=== PATIENT | female | born 2000 | race Native Hawaiian/Other Pacific Islander ===

== ENCOUNTER 2022-09-19 18:02 | Inpatient (IN) ==
[2022-09-19 20:48] LABS: Basophils # (auto) 0.03 K/uL (0-0.2); Basophils % (auto) 0.3 %; Eosinophils # (auto) 0.04 K/uL (0-0.50); Eosinophils % (auto) 0.4 %; Hematocrit (blood only) 37.8 % (37.0-47.0); Hemoglobin 12.7 g/dl (12.0-16.0); Lymphocytes # (auto) 2.14 K/uL (1.2-3.4); Lymphocytes % (auto) 20.8 %; Mean Corpuscular Hgb Conc 33.6 g/dL (32.0-36.0); Mean Corpuscular Volume 92.2 fL (80.0-100.0); Mean Platelet Volume 10.4 fL (9.4-12.4); Monocytes # (auto) 0.61 K/uL (0.11-0.59); Monocytes % (auto) 5.9 %; Neutrophils # (auto) 7.38 K/uL (1.40-6.50); Neutrophils % (auto) 71.6 %; Nucleated RBC # (auto) 0.04 K/uL (0-0.12); Nucleated RBC % (auto) 0.4 %; Platelet Count 117 K/uL (130-400); RDW Coefficient of Variation 15.4 % (11.5-14.5)
[2022-09-19 20:54] LABS: Creatinine Urine Random 37.7 mg/dl; Protein Creatinine Ratio Urine 0.3 (0-0.2); Total Protein Urine Random 10.7 mg/dl (0-11.9)
[2022-09-19 21:14] LABS: Alanine Aminotransferase 14 U/L (7-52); Albumin Globulin Ratio 1.4 (0.9-2); Albumin Level 3.7 gm/dl (3.4-5.0); Alkaline Phosphatase 108 U/L (34-104); BUN Creatinine Ratio 13.3 (10-20); Bilirubin,Total 0.5 mg/dl (0.2-1.0); Blood Urea Nitrogen 6 mg/dl (6-23); Calcium 8.9 mg/dl (8.6-10.3); Carbon Dioxide 19 mmol/L (21-32); Chloride 108 mmol/L (98-107); Est GFR (African American) > 150.0 ml/min; Est GFR (Non-African American) 141.2 ml/min; Globulin 2.6 gm/dl (2.5-4.0); Glucose 100 mg/dl (70-99(Fasting)); Total Protein 6.3 gm/dl (6.0-8.3)
[2022-09-19 22:08] LABS: Potassium 3.8 mmol/L (3.5-5.1)
[2022-09-19] MEDS ORDERED: LIDOCAINE 1% LOCAL 20 ML VIAL INFIL PRN (22:46)
[2022-09-19] MEDS ORDERED: OXYTOCIN 30 UNITS/500 ML BAG IV PRN ×2 (22:46)
[2022-09-19] MEDS ORDERED: PENICILLIN G POTASSIUM 6 MU in DEXTROSE 5% 250 ML IV STA (22:54)
--- NOTE | 2022-09-19 22:57 | History & Physical Report ---
Date of Service September 19, 2022 Assessment & Plan (1) Gestational diabetes: (2) GBS carrier: Plan 21 yo at 39 4/7 wga presents w/ decreased fm, no dx w/ PET w/o SF Mild range BPs Fetus cat 1 Labor - will check, was ft yesterday so likely pit/masters. Vertex by bsus PET w/o SF - will monitor bps GBS+, pcn ordered epidural prn History of Present Illness Chief Complaint: decreased fm Primary Care Provider: NO PCP 21 yo at 39 4/7 wga presented earlier this evening w/ c/o decreased FM. NST was reactive and she began feeling good FM however BPs were elevated. They were monitored and continued to remain normotensive to mild range with a severe range noted that was ?around the time of when lab was coming and was immediately repeated without much time in b/w however did not persist. Labs were obtained and wnl except uP:C 0.3. BPs did remain mild range 4hrs apart so met criteria for pre-eclampsia w/o SF. 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 cyclesdenies hx stis Allergies Allergy/AdvReac Type Severity Reaction Status Date / Time No Known Allergies Allergy Verified 09/18/22 10:20 Home Medications Medication Instructions Recorded Confirmed Type prenat.vits,zoltan,[id number]-[id number] 1 tab PO DAILY 02/05/22 09/18/22 History acetone (urine) test (Ketone Urine #50 ea 08/07/22 09/18/22 Rx Test strips) blood sugar diagnostic (OneTouch #150 ea 08/07/22 09/18/22 Rx Verio test strips) blood-glucose meter (OneTouch #1 ea 08/07/22 09/18/22 Rx Verio Reflect Meter) lancets 33 gauge (OneTouch Delica #150 ea 08/07/22 09/18/22 Rx Lancets) flash glucose sensor (FreeStyle #2 ea 08/08/22 09/18/22 Rx Cristobal 2 Sensor kit) Patient History Surgical History S/P wisdom tooth extraction Surgery, elective surgical 2018 Family History (Updated 02/05/22 @ 07:45 by Chica Magaña) Other Diabetes Dyslipidemia Endometriosis Heart disease Hypertension Thyroid disease Social History (Updated 02/05/22 @ 07:46 by Chica Magaña) Smoking Status: Never smoker Do You Dip or Chew Tobacco: No; Hx Alcohol Use: No Hx Substance Use: No Preferred Language: Mongolian Communication Ability: Effective Director Of Field Sales Required: No Beliefs That Will Affect Care: None marital status: marital status details: Jaycob [phone] Current Living Situation: Spouse Current Living Situation Comment: lives with spouse, no pets current occupational status: employed current occupation: Teacher. Other Information That Helps Us Care for You: No Feels Safe at Home: Yes Safety Concerns: Feels Safe At This Time Assistive Devices: None Physical Exam Genitourinary: OB Exam Abdomen: + vertex (confirmed by bsus) OB Exam Monitor Tracing: + external FHT monitor used, + external uterine monitor used and + category I Results & Data Vital Signs (Past 12 Hours) Vital Signs Pulse BP 09/19/22 22:19 103 H 09/19/22 22:19 145/68 H 09/19/22 22:09 100 H 09/19/22 22:09 134/63 09/19/22 22:00 96 H 09/19/22 22:00 155/90 H 09/19/22 21:49 101 H 09/19/22 21:49 134/107 H 09/19/22 21:40 108 H 09/19/22 21:40 144/96 H 09/19/22 21:36 102 H 09/19/22 21:36 144/91 H 09/19/22 20:59 97 H 126/84 09/19/22 20:12 110 H 143/97 H 09/19/22 19:49 113 H 178/97 H 09/19/22 19:34 112 H 175/84 H 09/19/22 19:33 123 H 160/79 H 09/19/22 19:18 113 H 154/84 H 09/19/22 19:04 108 H 149/81 H 09/19/22 18:48 113 H 140/90 09/19/22 18:33 100 H 148/85 H 09/19/22 18:17 104 H 142/95 H Laboratory Results OB Labs: Blood Type A Positive 02/13/22 Antibody Screen NEGATIVE 02/13/22 Hemoglobin 11.2 g/dl (12.0-16.0) L 07/19/22 Hematocrit 32.6 % (37.0-47.0) L 07/19/22 Mean Corpuscular Volume 86.8 fL (80.0-100.0) 02/13/22 Platelet Count 235 K/uL (130-400) 02/13/22 Rubella IgG Antibody Immune (Immune) 02/13/22 Rapid Plasma Reagin Nonreactive (Nonreactive) 02/13/22 Hepatitis B Surface Antigen. NON-REACTIVE (NON-REACTIVE) 02/13/22 Hepatitis C Antibody (EIA) NON-REACTIVE (NON-REACTIVE) 02/13/22 HIV (1&2) Ag and Ab Confirmation NON-REACTIVE (NON-REACTIVE) 02/13/22 Glucose 1 Hour 50 gm Load 133 mg/dl (70-130) H 04/09/22 OB Optional Labs: Chlamydia trachomatis RNA Not Detected (NotDetected) 02/13/22 Neisseria gonorrhoeae RNA Not Detected (NotDetected) 02/13/22 Labs Reviewed: Declines cf/sma/cfdna--mln declines quad/afp GBS+ Diagnostic Findings 08/22 EFW 48%, ant plac Coding Level of Care Code None Diagnoses Gestational diabetes O24.419 GBS carrier Z22.330
[2022-09-19] MEDS: LACTATED RINGER'S 1,000 ML IV PRN (23:54)
[2022-09-20] MEDS ORDERED: diphenhydrAMINE 50 MG/ML VIAL PO STA (01:37)
[2022-09-20] MEDS ORDERED: diphenhydrAMINE Capsule 25 MG CAP PO STA (01:57)
[2022-09-20] MEDS: PENICILLIN G POTASSIUM 3 MU in DEXTROSE 5% 100 ML IV PRN ×5 (03:35→21:01)
[2022-09-20] MEDS: LACTATED RINGER'S 1,000 ML IV PRN ×4 (03:35→16:34)
--- NOTE | 2022-09-20 10:37 | Labor Progress Brief Note ---
Date of Service September 20, 2022 Subjective Delayed entry. Care of patient assumed at 0830. 21yo at 39w5d admitted for IOL with mild preeclampsia, GDM diet controlled, GBS+, and class 3 obesity. On pitocin but neither ruptured nor had received epidural at the time I assumed care. Assessment & Plan (1) Gestational diabetes: Plan: continue curr mgmt. Admission and Anticipated Discharge Date Admission Date: September 19, 2022 Physical Exam Genitourinary: /-2 150 mod marlena +acc -dec Agreeable to AROM: light mec noted. Does not desire epidural yet. Results & Data Vital Signs (Past 12 Hours) Vital Signs Temp Pulse Resp BP 09/20/22 09:58 103 H 141/99 H 09/20/22 08:52 101 H 136/78 09/20/22 06:56 87 130/61 09/20/22 05:13 97 H 135/64 09/20/22 03:25 86 131/60 09/20/22 02:18 96 H 125/71 09/20/22 00:42 94 H 110/55 L 09/19/22 23:37 95 H 09/19/22 23:37 135/84 09/19/22 23:35 18 09/19/22 23:35 99.3 F 18 Coding Level of Care Code None Diagnoses Gestational diabetes O24.419
[2022-09-20] MEDS ORDERED: BUPIVACAINE 0.25% PF 30 ML VIAL ONE (12:02)
[2022-09-20] MEDS ORDERED: LIDOCAINE 2%/EPINEPHRINE 1:200,000 20 ML PF ONE (12:02)
[2022-09-20] MEDS ORDERED: fentaNYL citrate PF 100 MCG/2 ML VIAL ONE (12:02)
[2022-09-20] MEDS ORDERED: SODIUM CHLORIDE 0.9% PF INJ 10 ML VIAL ONE (12:02)
[2022-09-20] MEDS ORDERED: ePHEDrine sulfate 50 MG/ML AMP ONE (12:02)
[2022-09-20] MEDS ORDERED: fentaNYL 2MCG/ML ROPIVACAINE 1.25MG/ML 100 ML BAG EPI ONE (12:03)
--- NOTE | 2022-09-20 12:17 | Anesthesiology Consultation ---
Date of Service September 20, 2022 Assessment & Plan Chart Review Chart Review: Acceptable Risk for Surgery and Patient NOT seen in Pre Admission Testing Consults Requested none ASA ASA3 Proposed Anesthesia Anesthesia Type: Labor Epidural and CSE History Height/Weight Height: 5 ft Weight: 119.295 kg Allergies Allergy/AdvReac Type Severity Reaction Status Date / Time No Known Allergies Allergy Verified 09/18/22 10:20 Medications Home Medications Medication Instructions Recorded Confirmed Last Taken prenat.vits,zoltan,thf-wizw-fclan 1 tab PO DAILY 02/05/22 09/18/22 Unknown acetone (urine) test (Ketone Urine #50 ea 08/07/22 09/18/22 Unknown Test strips) blood sugar diagnostic (OneTouch #150 ea 08/07/22 09/18/22 Unknown Verio test strips) blood-glucose meter (OneTouch #1 ea 08/07/22 09/18/22 Unknown Verio Reflect Meter) lancets 33 gauge (OneTouch Delica #150 ea 08/07/22 09/18/22 Unknown Lancets) flash glucose sensor (FreeStyle #2 ea 08/08/22 09/18/22 Unknown Cristobal 2 Sensor kit) Active Medications Generic Name Dose Route Start Last Admin Trade Name Freq PRN Reason Stop Dose Admin Oxytocin 30 units in 500 mls @ 12 mls/hr 09/19/22 22:46 09/20/22 11:11 Pitocin IV 09/21/22 22:45 0.72 units/hr .Q24H PRN 12 mls/hr Labor Induction/Augmentation Titration Protocol 0.72 UNITS/HR Lactated Ringer's 1,000 mls @ 125 mls/hr 09/19/22 22:46 09/20/22 08:55 Lr IV 09/21/22 22:45 125 mls/hr .Q8H PRN Administration L&D Protocol Protocol Penicillin G Potassium 3 mu/ 106 mls @ 100 mls/hr 09/20/22 01:46 09/20/22 10:31 Dextrose IV 09/30/22 01:45 Infused Q4H PRN Infusion GBS(+) Until Delivery Past Medical History morbid obesity Exercise / Class Metabolic Activity II 4-5 Yardwork/Stairs/Walk up hill Past Family History Family History Other Diabetes Dyslipidemia Endometriosis Heart disease Hypertension Thyroid disease Past Surgical History Surgical History S/P wisdom tooth extraction Surgery, elective surgical 2018 Past Anesthesia History No Hx of Anesthesia Complications and No Family Hx of Anesthesia Complications History of PONV No Hx of PONV and No Hx of Motion Sickness Social History Smoking Status: Never smoker Do You Dip or Chew Tobacco: No Hx Alcohol Use: No Hx Substance Use: No Physical Exam Vital Signs Last Vital Signs Temp 37.0 C 09/20/22 11:13 Pulse 95 H 09/20/22 12:13 Resp 20 09/20/22 11:13 BP 155/89 H 09/20/22 11:13 Pulse Ox 96 09/20/22 12:13 Testing Laboratory Results 09/19/22 19:57 09/19/22 21:23 Blood Type A Positive 09/19/22 22:59 Antibody Screen NEGATIVE 09/19/22 22:59 09/20/22 09/20/22 09/20/22 10:51 06:53 02:16 POC Glucose 84 90 92
[2022-09-20] MEDS ORDERED: PROMETHAZINE HCL 25 MG in SODIUM CHLORIDE 0.9% 50 ML IV PRN (13:06)
[2022-09-20] MEDS ORDERED: fentaNYL citrate PF 100 MCG/2 ML VIAL EPI STA (13:06)
[2022-09-20] MEDS ORDERED: NALBUPHINE HCL INJ 10 MG/ML AMP IV PRN (13:06)
[2022-09-20] MEDS ORDERED: SODIUM CHLORIDE 0.9% PF INJ 10 ML VIAL EPI PRN (13:06)
[2022-09-20] MEDS ORDERED: diphenhydrAMINE 50 MG/ML VIAL IV PRN (13:06)
[2022-09-20] MEDS ORDERED: ONDANSETRON INJ 2 MG/ML 2 ML VIAL IV PRN (13:06)
[2022-09-20] MEDS ORDERED: LIDOCAINE 2% MPF LOCAL 5 ML VIAL EPI PRN (13:06)
[2022-09-20] MEDS ORDERED: NALOXONE HCL 1 MG in SODIUM CHLORIDE 0.9% 1000ML 1,000 ML IV PRN (13:06)
[2022-09-20] MEDS ORDERED: BUPIVACAINE 0.25% PF 30 ML VIAL EPI STA (13:06)
[2022-09-20] MEDS ORDERED: NALOXONE HCL 0.4 MG/1 ML VIAL/CARP IV PRN (13:06)
[2022-09-20] MEDS ORDERED: BUPIVACAINE 0.25% PF 30 ML VIAL EPI PRN (13:06)
[2022-09-20] MEDS ORDERED: SODIUM CHLORIDE 0.9% PF INJ 10 ML VIAL EPI STA (13:06)
[2022-09-20] MEDS ORDERED: fentaNYL citrate PF 100 MCG/2 ML VIAL EPI PRN (13:06)
[2022-09-20] MEDS ORDERED: ePHEDrine sulfate 50 MG/ML AMP IV PRN (13:06)
[2022-09-20] MEDS ORDERED: ROPIVACAINE 0.5% PF 5 MG/ML 20 ML VIAL EPI PRN (13:06)
[2022-09-20] MEDS ORDERED: LIDOCAINE 2%/EPINEPHRINE 1:200,000 20 ML PF EPI STA (13:06)
[2022-09-20] MEDS: fentaNYL 2MCG/ML ROPIVACAINE 1.25MG/ML 100 ML BAG EPI PRN ×2 (19:27→23:49)
[2022-09-20] MEDS ORDERED: NURSING L&D Epidural Breakthrough Pain Update ONE (19:59)
--- NOTE | 2022-09-20 20:58 | Anesthesia Procedure Note ---
Date of Service September 20, 2022 Anesthesia Epidural Re-Dose Vital Signs Temp Pulse Resp BP Pulse Ox 99.0 F 111 H 20 139/67 97 09/20/22 19:15 09/20/22 20:53 09/20/22 20:30 09/20/22 20:45 09/20/22 20:53 Notes Pain Intensity: 3 Dilatation (cm): 6.0 Effacement (%): 100 Called by nursing to evaluate epidural as the patient is having increased pain. The epidural was re-dosed with the following medications (all medications via epidural route) after negative aspiration of the epidural catheter for CSF/HEME. 0.125% Bupivacaine (8ml) After Epidural Re-Dose Mental Status: alert / awake / arousable Pain: improving with treatment Airway Patency, RR, SpO2: stable & adequate BP & HR: stable & adequate
[2022-09-20] MEDS ORDERED: ACETAMINOPHEN 325 MG TAB PO PRN (21:54)
[2022-09-20] MEDS ORDERED: ACETAMINOPHEN 325 MG TAB ONE (22:10)
[2022-09-20] MEDS ORDERED: AMPICILLIN/SULBACTAM SOD 3,000 MG in 0.9 % SODIUM CHLORIDE 100 ML IV STA (23:29)
--- NOTE | 2022-09-20 23:36 | Labor Progress Brief Note ---
Date of Service September 20, 2022 Subjective Patient feeling fatigued, hot / flushed, hoping to be delivered soon. Note I was called by the nurse an hour or so ago to request tylenol for headache, which was given. Assessment & Plan (1) Gestational diabetes: Plan: Fever noted, 100.8F now even in the setting of prior tylenol, and baseline at upper limit of normal to mildly tachycardic at times. Likely early endo myometritis, will begin Unasyn. Fortunately also completely dilated and will begin 2nd stage of labor. Admission and Anticipated Discharge Date Admission Date: September 19, 2022 Physical Exam Physical Exam: sitting upright, cool washcloth on forehead and ice pack pad on chest Genitourinary: 10/+1 with notable molding. 160 mod marlena +acc -dec [place] Q2-5 moderate meconium fluid in the IU[facility] and on chux Results & Data Vital Signs (Past 12 Hours) Vital Signs Temp Pulse Resp BP Pulse Ox O2 Del Method 09/20/22 19:10 Room Air 09/20/22 23:28 135 H 100 09/20/22 23:23 126 H 100 09/20/22 23:21 116 H 139/79 09/20/22 23:18 140 H 97 09/20/22 23:13 115 H 97 09/20/22 23:08 114 H 98 09/20/22 23:06 116 H 131/61 09/20/22 23:00 18 09/20/22 23:00 18 09/20/22 23:03 114 H 100 09/20/22 22:54 100.8 F H 09/20/22 22:58 114 H 98 09/20/22 22:53 117 H 98 09/20/22 22:51 118 H 131/56 L 09/20/22 22:48 123 H 99 09/20/22 22:43 127 H 97 09/20/22 22:30 20 09/20/22 22:30 20 09/20/22 22:38 112 H 97 09/20/22 22:35 117 H 134/62 09/20/22 22:33 121 H 98 09/20/22 22:28 136 H 96 09/20/22 22:00 18 09/20/22 22:00 18 09/20/22 22:23 117 H 98 09/20/22 22:22 120 H 152/69 H 09/20/22 22:18 116 H 99 09/20/22 22:13 114 H 99 09/20/22 22:08 106 H 96 09/20/22 22:06 110 H 132/61 09/20/22 22:03 104 H 97 09/20/22 21:58 116 H 97 09/20/22 21:53 116 H 97 09/20/22 21:50 114 H 135/62 09/20/22 21:48 111 H 96 09/20/22 21:43 110 H 95 09/20/22 21:30 16 09/20/22 21:30 16 09/20/22 21:38 109 H 94 09/20/22 21:36 105 H 135/62 09/20/22 21:33 102 H 96 09/20/22 21:31 105 H 94 09/20/22 21:28 105 H 96 09/20/22 21:23 111 H 95 09/20/22 21:21 101 H 132/60 09/20/22 21:18 110 H 95 09/20/22 21:13 104 H 96 09/20/22 21:08 112 H 97 09/20/22 21:04 103 H 155/71 H 09/20/22 21:03 117 H 97 09/20/22 21:02 105 H 153/59 H 09/20/22 21:00 107 H 18 158/70 H 09/20/22 20:58 99 09/20/22 20:58 110 H 09/20/22 20:58 109 H 150/71 H 09/20/22 20:56 99.3 F 109 H 144/62 H 09/20/22 20:53 111 H 97 09/20/22 20:48 111 H 96 09/20/22 20:45 109 H 139/67 09/20/22 20:43 109 H 97 09/20/22 20:38 109 H 97 09/20/22 20:30 20 09/20/22 20:30 20 09/20/22 20:33 111 H 97 09/20/22 20:29 108 H 138/63 09/20/22 20:28 107 H 97 09/20/22 20:23 138 H 97 09/20/22 20:21 95 H 91 09/20/22 20:18 102 H 98 09/20/22 20:13 97 H 98 09/20/22 20:00 20 09/20/22 20:00 20 09/20/22 20:09 116 H 135/63 09/20/22 20:08 134 H 99 09/20/22 19:30 18 09/20/22 19:30 18 09/20/22 20:03 104 H 98 09/20/22 19:58 96 H 99 09/20/22 19:53 98 09/20/22 19:53 102 H 09/20/22 19:53 97 H 123/59 L 09/20/22 19:48 118 H 99 09/20/22 19:43 110 H 100 09/20/22 19:39 107 H 133/11 L 09/20/22 19:38 105 H 100 09/20/22 19:33 100 H 99 09/20/22 19:28 104 H 99 09/20/22 19:24 103 H 148/63 H 09/20/22 19:23 106 H 98 09/20/22 19:15 99.0 F 09/20/22 19:18 102 H 99 09/20/22 19:13 102 H 100 09/20/22 19:08 101 H 100 09/20/22 19:09 96 H 127/77 09/20/22 19:03 114 H 99 09/20/22 18:58 101 H 99 09/20/22 18:53 95 H 119/66 100 09/20/22 18:48 94 H 99 09/20/22 18:43 117 H 99 09/20/22 18:40 104 H 134/76 09/20/22 18:38 103 H 100 09/20/22 18:33 101 H 99 09/20/22 18:29 90 126/60 09/20/22 18:28 100 H 145/67 H 99 09/20/22 18:23 95 H 192/102 H 98 09/20/22 18:18 102 H 99 09/20/22 18:13 98 H 99 09/20/22 18:08 99 09/20/22 18:08 97 H 09/20/22 18:08 100 H 149/75 H 09/20/22 18:03 105 H 99 09/20/22 17:58 94 H 99 09/20/22 17:53 96 H 132/76 99 09/20/22 17:48 103 H 100 09/20/22 17:43 96 H 98 09/20/22 17:38 100 H 139/74 98 09/20/22 17:33 102 H 100 09/20/22 17:28 95 H 100 09/20/22 17:23 100 09/20/22 17:23 100 H 09/20/22 17:23 100 H 156/79 H 09/20/22 17:18 101 H 99 09/20/22 17:13 99 H 99 09/20/22 17:08 95 H 99 09/20/22 17:09 101 H 139/80 09/20/22 17:03 108 H 100 09/20/22 16:58 99 H 100 09/20/22 16:53 100 09/20/22 16:53 99 H 09/20/22 16:53 99.0 F 100 H 20 155/78 H 09/20/22 16:48 98 H 100 09/20/22 16:43 99 H 99 09/20/22 16:38 99 09/20/22 16:38 101 H 09/20/22 16:38 100 H 157/71 H 09/20/22 16:33 100 H 100 09/20/22 16:28 95 H 99 09/20/22 16:23 102 H 99 09/20/22 16:24 107 H 20 155/70 H 09/20/22 16:18 111 H 99 09/20/22 16:13 111 H 99 09/20/22 16:08 95 H 100 09/20/22 16:09 93 H 143/78 H 09/20/22 16:03 96 H 100 09/20/22 15:58 97 H 100 09/20/22 15:53 99 09/20/22 15:53 118 H 09/20/22 15:53 98.8 F 121 H 20 142/67 H 09/20/22 15:48 103 H 100 09/20/22 15:43 92 H 100 09/20/22 15:39 93 H 141/65 H 09/20/22 15:38 89 100 09/20/22 15:33 94 H 100 09/20/22 15:28 93 H 100 09/20/22 15:24 90 20 149/82 H 09/20/22 15:23 91 H 100 09/20/22 15:18 88 100 09/20/22 15:15 110 H 92 09/20/22 15:13 106 H 100 09/20/22 15:08 87 130/68 99 09/20/22 15:03 97 H 99 09/20/22 14:58 79 99 09/20/22 14:53 99 09/20/22 14:53 86 09/20/22 14:53 82 132/79 09/20/22 14:45 20 09/20/22 14:45 99.7 F H 20 09/20/22 14:48 91 H 99 09/20/22 14:43 101 H 98 09/20/22 14:40 80 94 09/20/22 14:38 83 20 127/74 97 09/20/22 14:33 86 96 09/20/22 14:28 79 96 09/20/22 14:23 79 97 09/20/22 14:24 74 121/70 09/20/22 14:18 77 97 09/20/22 14:13 80 100 09/20/22 14:08 79 141/81 H 100 09/20/22 14:03 90 99 09/20/22 13:58 86 100 09/20/22 13:53 100 09/20/22 13:53 86 09/20/22 13:53 95 H 22 138/78 09/20/22 13:48 92 H 94 09/20/22 13:49 91 H 94 09/20/22 13:43 86 99 09/20/22 13:38 82 98 09/20/22 13:33 86 20 132/70 97 09/20/22 13:28 98 H 98 09/20/22 13:29 102 H 139/72 09/20/22 13:23 89 126/73 97 09/20/22 13:18 96 H 132/80 99 09/20/22 13:13 91 H 97 09/20/22 13:12 93 H 132/71 09/20/22 13:09 89 122/67 09/20/22 13:08 98 09/20/22 13:08 96 H 09/20/22 13:08 90 18 118/58 L 09/20/22 13:05 95 H 18 122/60 09/20/22 13:03 86 99 09/20/22 13:04 98.6 F 86 18 126/64 09/20/22 13:02 100 H 18 129/72 09/20/22 13:00 102 H 18 136/80 09/20/22 12:58 96 H 18 150/85 H 98 09/20/22 12:55 93 H 18 148/103 H 09/20/22 12:53 99 H 97 09/20/22 12:52 97 H 89 L 09/20/22 12:48 104 H 100 09/20/22 12:43 98 H 95 09/20/22 12:42 116 H 92 09/20/22 12:38 101 H 97 09/20/22 12:33 100 H 98 09/20/22 12:31 99 H 94 09/20/22 12:28 96 H 95 09/20/22 12:26 96 H 20 159/95 H 09/20/22 12:23 90 98 09/20/22 12:18 89 98 09/20/22 12:13 96 09/20/22 12:13 95 H 09/20/22 12:13 105 H 90 09/20/22 12:08 95 H 99 Coding Level of Care Code None Diagnoses Gestational diabetes O24.419
[2022-09-21] MEDS: LACTATED RINGER'S 1,000 ML IV PRN (00:16)
[2022-09-21] MEDS: PENICILLIN G POTASSIUM 3 MU in DEXTROSE 5% 100 ML IV PRN (00:42)
--- NOTE | 2022-09-21 01:54 | Delivery Summary ---
Vaginal Delivery Summary Date of Service September 21, 2022 Vaginal Delivery Summary DIAGNOSES: 1. [place] intrauterine at 39w6d gestation. 2. Induction of Labor. 3. Group B Streptococcus Pos 4. A2GDM 5. Maternal Class 3 Obesity 6. Shoulder dystocia. PROCEDURE: Spontaneous vaginal delivery and repair of second degre laceration. SURGEON: Cari Roman MD. RECORDING CLERK: None. ESTIMATED BLOOD LOSS: 400 mL. COMPLICATIONS: None. PLACENTA: Spontaneous and intact with a 3-vessel cord. DISPOSITION: Stable to labor and delivery. DESCRIPTION: The patient pushed to deliver the head in DOA position. Turtle sign / prolonged was noted and preparations were made for possible dystocia maneuvers. Manual reduction of maternal soft tissue was required to free the face/chin and complete delivery of the head. Before downward traction or any attempt to deliver shoulders, a pop was felt, and this was announced to alert the nursery team for possible shoulder injury. There was no nuchal cord. The left shoulder was anterior. The shoulders and body delivered with Radha positioning and maternal efforts, without any suprapubic pressure applied. The was placed on the maternal abdomen. It was vigorous and making respiratory efforts. The cord was doubly clamped by the MD and then cut by the FOB. The placenta delivered spontaneously and was noted to be intact and with a 3VC. The cervix, vagina and perineum were examined and were found to have a second degree perineal laceration which was repaired in the usual manner with vicryl suture, including a crown stitch to rebuild the perineal body. The fundus was firm and lochia minimal immediately after delivery. [facility] Vaginal Delivery Charge Vaginal Delivery Codes: 80921 global code for the antepartum, delivery, and post-
[2022-09-21] MEDS ORDERED: DIPHTHERIA/TETANUS/PERTUSSIS Vaccine (Tdap, Age 7+yrs) 0.5mL SYR/VL IM ONE (02:27)
[2022-09-21] MEDS ORDERED: HYDROCORTISONE ACETATE 25 MG SUPP PR PRN (02:27)
[2022-09-21] MEDS ORDERED: BENZOCAINE 20% AER SPR 82.5 GM CAN EXT PRN (02:27)
[2022-09-21] MEDS ORDERED: ACETAMINOPHEN 325 MG TAB PO PRN (02:27)
[2022-09-21] MEDS ORDERED: oxyCODONE/ACETAMINOPHEN 5mg/325mg TAB PO PRN (02:27)
[2022-09-21] MEDS: IBUPROFEN 600 MG TAB PO PRN ×5 (02:46→20:53)
[2022-09-21] MEDS: AMPICILLIN/SULBACTAM SOD 1,500 MG in 0.9 % SODIUM CHLORIDE 100 ML IV SCH ×4 (06:06→23:56)
--- NOTE | 2022-09-21 07:37 | Anesthesia Procedure Note ---
Date of Service September 21, 2022 Anesthesia Post Epidural Note Vital Signs Vital Signs: Temp Pulse Resp BP Pulse Ox O2 Del Method 37.3 C 101 H 18 120/81 96 Room Air 09/21/22 04:30 09/21/22 04:30 09/21/22 04:30 09/21/22 04:30 09/21/22 04:30 09/21/22 04:30 Pain Intensity Lower Abdomen: Pain Intensity: 7 Back: Pain Intensity: 3 Episiotomy/Laceration: Pain Intensity: 2 Notes Mental Status: alert / awake / arousable Nausea / Vomiting: adequately controlled Pain: adequately controlled Airway Patency, RR, SpO2: stable & adequate BP & HR: stable & adequate Hydration State: stable & adequate Neuraxial Anesthesia: was administered and sensory block is resolving Anesthetic Complications: no major complications apparent Epidural: Removed without complications and With tip intact
[2022-09-21] MEDS: DOCUSATE SODIUM 100 MG CAP PO SCH ×2 (08:17→20:53)
[2022-09-21] MEDS: PRENATAL VITAMIN 1 TAB PO SCH (08:17)
[2022-09-22] MEDS: IBUPROFEN 600 MG TAB PO PRN ×2 (03:12→08:49)
[2022-09-22] MEDS: AMPICILLIN/SULBACTAM SOD 1,500 MG in 0.9 % SODIUM CHLORIDE 100 ML IV SCH (06:06)
--- NOTE | 2022-09-22 06:26 | Obstetrical Progress Note ---
Date of Service <Belkis Alba DO - Last Filed: 09/22/22 07:08> September 22, 2022 Assessment & Plan <Belkis Alba DO - Last Filed: 09/22/22 07:08> (1) care following vaginal delivery: Feels well today. Eating well, voiding well, ambulating well. Pain well controlled with motrin. Routine care; OOB, ambulation, diet progression as tolerated. Continue unasyn. Plan for discharge tomorrow. After discharge will have 6 week follow-up with Dr. Roman. <Cari Roman MD - Last Filed: 09/22/22 07:16> (1) care following vaginal delivery: Subjective <Belkis Alba DO - Last Filed: 09/22/22 07:08> Pt is a 21 y/o female who is PPD#1 following at 40 0/7 weeks. was complicated by preeclampsia and endomyometritis. Pt states she has ambulated and voided since the delivery, but not yet passing gas. No BM yet. She states her pain is 3/10 improved with motrin. Has some persistent lochia with some improvement this morning. Has eaten since the delivery without nausea or vomiting. She is breast feeding. Constitutional: no fever, no chills or no sweats Respiratory: no dyspnea Cardiovascular: no chest pain or no palpitations Breast: no breast pain Genitourinary (female): no dysuria Neurologic: no headache(s) no changes in vision, no headaches Physical Exam <Belkis Alba DO - Last Filed: 09/22/22 07:08> General: Alert, oriented. No acute distress. Cardiac: Regular rate and rhythm, no murmurs, rubs, or gallops. Respiratory: Clear to auscultation bilaterally, no wheezes/rales/rhonchi. No increased work of breathing. Symmetrical chest rise. No respiratory distress. Abdomen: Soft, nontender, nondistended. Bowel sounds present. Uterus: Uterine fundus firm, palpable below the umbilicus. Lower extremities: No lower extremity edema or swelling. No deep calf pain. Results & Data <Belkis Alba DO - Last Filed: 09/22/22 07:08> Vital Signs (Past 12 Hours) Vital Signs Temp Pulse Resp BP Pulse Ox O2 Del Method 09/22/22 03:00 36.5 C 95 H 18 107/76 99 Room Air 09/22/22 01:10 113 H 137/92 09/21/22 23:24 37.1 C 105 H 20 124/78 94 Room Air 09/21/22 19:30 36.8 C 103 H 18 134/78 98 Room Air <Cari Roman MD - Last Filed: 09/22/22 07:16> Co-Signing Physician Notes Resident Physician Supervision Note: I interviewed and examined the patient. Discussed with Dr. Alba and agree with findings and plan as documented in the note. Any exceptions or clarifications are listed here: No fever in last 24 hours, will stop unasyn. Documented By: Cari Roman MD, FACOG Resident Activity Tracking <Belkis Alba DO - Last Filed: 09/22/22 07:08> Resident Involvement: Resident Care Provided Care Provided: OB Delivery
[2022-09-22 08:07] LABS: Hematocrit (blood only) 24.1 % (37.0-47.0); Hemoglobin 8.3 g/dl (12.0-16.0); Mean Corpuscular Hemoglobin 31.2 pg (25.0-34.0); Mean Corpuscular Hgb Conc 34.4 g/dL (32.0-36.0); Mean Corpuscular Volume 90.6 fL (80.0-100.0); Mean Platelet Volume 9.5 fL (9.4-12.4); Platelet Count 114 K/uL (130-400); RDW Coefficient of Variation 15.5 % (11.5-14.5); RDW Standard Deviation 50.4 fL (36.4-46.3); Red Blood Count 2.66 M/uL (4.20-5.40); White Blood Count 9.85 K/ul (4.8-10.8)
[2022-09-22] MEDS: DOCUSATE SODIUM 100 MG CAP PO SCH (08:48)
[2022-09-22] MEDS: PRENATAL VITAMIN 1 TAB PO SCH (08:49)
[2022-09-22] MEDS ORDERED: bisacodyL 5 MG TABEC PO SCH (20:00)
[2022-09-23] MEDS ORDERED: bisacodyL 10 MG SUPP PR PRN
== END 2022-09-22 17:50 | disposition home or self-care (01) | DRG 807 ==
LOC: OPB 18:02 → 4S1 18:03 → 4E2 09-21 04:26